=== PATIENT | female | born 2000 | race Hispanic/Latino ===

== ENCOUNTER 2019-09-23 01:37 | Emergency (ER) | payer MEDICAID, OTHER ==
[2019-09-23] MEDS ORDERED: SODIUM CHLORIDE 0.9% 1000ML 1,000 ML IV ONE (01:58)
[2019-09-23] MEDS ORDERED: ONDANSETRON HCL 4 MG/2 ML VIAL ONE (01:58)
[2019-09-23] MEDS ORDERED: MORPHINE SULFATE 4 MG/1ML SYG ONE ×2 (01:59→05:47)
[2019-09-23 02:05] LABS: APPEARANCE,URINE Clear (CLEAR); BILIRUBIN,URINE Negative (NEGATIVE); COLOR,URINE Yellow (YELLOW); GLUCOSE, URINE (UA) Negative (NEGATIVE); KETONES,URINE Negative (NEGATIVE); LEUKOCYTE ESTERASE ,URINE Trace (NEGATIVE); NITRATE,URINE Negative (NEGATIVE); OCCULT BLOOD,URINE Negative (NEGATIVE); PH,URINE 5.5 (5.0-8.0); PROTEIN,URINE Negative (NEGATIVE)
[2019-09-23 02:08] LABS: HCG,QUAL RESULT NEGATIVE (NEGATIVE)
[2019-09-23 02:21] LABS: BASOPHILS % (AUTO) 0.7 % (0.0-5.0); EOSINOPHILS % (AUTO) 1.9 % (0.0-8.0); HEMATOCRIT 38.3 % (36-48); MEAN CORPUSCULAR HEMOGLOBIN 28.9 pg (27.0-33.0); MEAN CORPUSCULAR HGB CONC 33.9 g/dL (32.0-36.0); MEAN CORPUSCULAR VOLUME 85.3 fL (80-100); MONOCYTES % (AUTO) 5.1 % (3.0-13.0); NEUTROPHILS % (AUTO) 61.3 % (40.0-77.0); PLATELET COUNT (AUTO) 238 K/uL (130-400); RED BLOOD CELL COUNT(AUTO) 4.49 MIL/uL (4.00-5.50); RED CELL DISTRIBUTION WIDTH 12.8 % (11.0-15.5); WHITE BLOOD COUNT (AUTO) 11.4 K/uL (4.8-10.8)
[2019-09-23 02:29] LABS: CREATININE 0.8 mg/dL (0.5-1.5); POTASSIUM 4.1 mmol/L (3.5-5.1)
[2019-09-23 02:32] LABS: BACTERIA,URINE Few /HPF (None Seen); RBC,URINE 0-1 /HPF (0-1)
[2019-09-23 02:33] LABS: ALBUMIN 3.6 g/dL (3.5-5.0); BILIRUBIN,TOTAL 0.5 mg/dL (0.2-1.0); TOTAL PROTEIN, SERUM 7.6 g/dL (6.0-8.3)
[2019-09-23] MEDS ORDERED: IOHEXOL-350 75 ML VIAL IV ONE (02:52)
[2019-09-23] MEDS ORDERED: KETOROLAC TROMETHAMINE 30MG/ML ONE (04:11)
== END 2019-09-23 06:36 | disposition home or self-care (01) ==
LOC: EDH 01:37
DX: S30.1XXA Contusion of abdominal wall, initial encounter (principal); K63.89 Other specified diseases of intestine; Z90.49 Acquired absence of other specified parts of digestive tract; X58.XXXA Exposure to other specified factors, initial encounter; Y93.89 Activity, other specified; Y92.89 Other specified places as the place of occurrence of the external cause; Y99.8 Other external cause status
CPT/HCPCS: 36415; 74177; 80053; 81001; 81025; 83690; 85025; 96374; 96375; 96376; 99285; J1885; J2270 ×2; J2405; J7030; Q9967